=== PATIENT | female | born 1995 | race American Indian/Alaskan Native ===

== ENCOUNTER 2017-06-12 14:29 | Emergency (ER) | payer MEDICAID ==
[2017-06-12 15:00] VITALS: BP 111/81
[2017-06-12] MEDS ORDERED: TORADOL IM ONE (16:34)
[2017-06-12] MEDS ORDERED: PERCOCET 5/325 PO ONE (16:34)
--- NOTE | 2017-06-12 17:03 | XRay Report ---
FINAL REPORT EXAM: XR KNEE 3V LT HISTORY: left knee pain TECHNIQUE: Left knee three views PRIORS: None. FINDINGS: No fracture is identified. No dislocation seen. No evidence of joint effusion. Patella demonstrates normal positioning. No acute bony abnormality identified. IMPRESSION: Negative knee series
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
[2017-06-12] MEDS ORDERED: PERCOCET 5/325 ONE (18:48)
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
[2017-06-12] MEDS ORDERED: TORADOL ONE (20:04)
[2017-06-12] MEDS ORDERED: ZOFRAN ONE (20:04)
[2017-06-12] MEDS ORDERED: ZOFRAN IV ONE (20:09)
[2017-06-12] MEDS ORDERED: TORADOL IV ONE (20:09)
== END 2017-06-12 20:21 | disposition home or self-care (01) ==
LOC: ED 14:29
DX: S16.1XXA Strain of muscle, fascia and tendon at neck level, initial encounter (principal); S29.012A Strain of muscle and tendon of back wall of thorax, initial encounter; S80.02XA Contusion of left knee, initial encounter; M54.89 Other dorsalgia; J45.909 Unspecified asthma, uncomplicated; Z91.048 Other nonmedicinal substance allergy status; Z88.8 Allergy status to other drugs, medicaments and biological substances; V89.2XXA Person injured in unspecified motor-vehicle accident, traffic, initial encounter; Y93.89 Activity, other specified; Y92.89 Other specified places as the place of occurrence of the external cause; Y99.8 Other external cause status
CPT/HCPCS: 71250; 72125; 73562; 74177; 96374; 96375; 99284; J1885; J2405; Q9967